=== PATIENT | male | born 1995 | race Caucasian/White ===

== ENCOUNTER 2017-06-04 17:35 | Emergency (ER) | payer OTHER ==
[~2017-06-04] VITALS: Ht 172.7 cm; Wt 72.7 kg
[2017-06-04] MEDS ORDERED: IBUP80TA PO (19:44)
[2017-06-04] MEDS ORDERED: ROBA500T PO (19:44)
[2017-06-04] MEDS ORDERED: IBUPROFEN 800 MG TAB PO ONE (19:45)
[2017-06-04] MEDS ORDERED: METHOCARBAMOL 500 MG TAB PO ONE (19:45)
[2017-06-04 19:58] VITALS: BP 126/64
== END 2017-06-04 19:59 | disposition home or self-care (01) ==
LOC: M ED 17:35
DX: S16.1XXA Strain of muscle, fascia and tendon at neck level, initial encounter (principal); V49.40XA Driver injured in collision with unspecified motor vehicles in traffic accident, initial encounter; Y92.410 Unspecified street and highway as the place of occurrence of the external cause; Y93.89 Activity, other specified; Y99.9 Unspecified external cause status

== ENCOUNTER → 2021-04-18 | Outpatient (CLI) | payer OTHER ==
[~2021-04-18] MED LIST: IBUP80TA PO; ROBA500T PO
--- NOTE | 2021-04-18 21:43 | REP ---
INDICATION: FEVER, UNSPECIFIED COMPARISON: None. TECHNIQUE: PA and lateral. FINDINGS: The mediastinum and cardiac silhouette are normal. The lung jarquin are clear and without acute consolidation, effusion, or pneumothorax. The skeletal structures are intact and normal. IMPRESSION: No acute cardiopulmonary process. <Electronically signed by Jose Salgado > 04/18/21 [id number]
== END ==
LOC: M PLAIMG 11:56
PROVIDERS: ATTEND Physician Assistant
DX: R50.9 Fever, unspecified (principal)

== ENCOUNTER → 2021-04-18 | Outpatient (REF) | payer OTHER | LOC: M SFHCPLAZ 12:40 | PROVIDERS: ATTEND Physician Assistant | DX: R50.9 Fever, unspecified (principal); J02.9 Acute pharyngitis, unspecified | CPT/HCPCS: 87081; U0003 ==

== ENCOUNTER → 2021-10-03 | Outpatient (REF) | payer OTHER | LOC: M SFHCADAM 08:01 | PROVIDERS: ATTEND Physician Assistant | DX: Z00.00 Encounter for general adult medical examination without abnormal findings (principal) ==

== ENCOUNTER → 2022-02-09 | Outpatient (CLI) | payer OTHER ==
[2022-02-09 10:57] LABS: APPEARANCE, URINE CLEAR (CLEAR); BACTERIA, URINE AUTO NEGATIVE (NEGATIVE); BILIRUBIN, URINE AUTO NEGATIVE (NEGATIVE); BLOOD, URINE BLOOD NEGATIVE (NEGATIVE); COLOR, URINE YELLOW (YELLOW); GLUCOSE, URINE (UA) AUTO NEGATIVE (NEGATIVE); KETONE, URINE AUTO NEGATIVE (NEGATIVE); LEUKOCYTE ESTERASE, URINE AUTO NEGATIVE (NEGATIVE); MUCUS, URINE SMALL (NEGATIVE); NITRITE, URINE AUTO NEGATIVE (NEGATIVE); PROTEIN, URINE AUTO NEGATIVE (NEGATIVE); RBC, URINE AUTO 0 /HPF (0-3); SPECIFIC GRAVITY URINE AUTO 1.019 (1.002-1.035); SQUAMOUS EPITHELIAL CELL UR AU 0 /HPF (0-6); UROBILINOGEN, URINE AUTO 0.2 mg/dL (0.0-2.0); WBC, URINE AUTO 0 /HPF (0-3)
== END ==
LOC: M LAB 10:27
PROVIDERS: ATTEND Family Medicine
DX: R30.9 Painful micturition, unspecified (principal)

== ENCOUNTER → 2022-04-08 | Outpatient (CLI) | payer OTHER ==
[~2022-04-08] MED LIST changes: +EXCETAB22 PO
== END ==
LOC: M LABSMTC 09:33
PROVIDERS: ATTEND Anesthesiology
DX: Z01.812 Encounter for preprocedural laboratory examination (principal); Z20.822 Contact with and (suspected) exposure to COVID-19

== ENCOUNTER 2022-04-10 09:39 | Day surgery (SDC) | payer OTHER ==
[~2022-04-10] VITALS: Ht 172.7 cm; Wt 81.6 kg
[~2022-04-10 09:39] MED LIST changes: +ceFAZolin SOD 2 GM in IV 1 EA IV ONE
[2022-04-10] MEDS ORDERED: LR 1,000 ML IV SCH ×2 (10:00→12:55)
[2022-04-10] MEDS ORDERED: BUPIVACAINE LIPOSOME/PF 1.3% 20ML VIAL (13.3MG/ML)(EXPAREL) As Ordered ONE (11:31)
[2022-04-10] MEDS ORDERED: BUPIVACAINE HCL 0.25% 10ML VIAL As Ordered ONE (11:31)
[2022-04-10] MEDS ORDERED: MIDAZOLAM INJ 2MG/2ML VIAL (J2250 PER 1MG) As Ordered ONE (12:07)
[2022-04-10] MEDS ORDERED: fentaNYL 100 MCG/2 ML INJECTION As Ordered ONE (12:07)
[2022-04-10] MEDS ORDERED: propofoL 200 MG/20 ML VIAL As Ordered ONE (12:08)
[2022-04-10] MEDS ORDERED: ROCURONIUM BROMIDE 50 MG/5 ML VIAL As Ordered ONE (12:09)
[2022-04-10] MEDS ORDERED: LIDOCAINE 2% 100MG/5ML SDV (FOR ANES.) As Ordered ONE (12:09)
[2022-04-10] MEDS ORDERED: dexameTHASONE 4 MG/ML 1ML VIAL (J1100 PER 1MG) As Ordered ONE (12:10)
[2022-04-10] MEDS ORDERED: ONDANSETRON 4MG 2ML VIAL As Ordered ONE (12:10)
[2022-04-10] MEDS ORDERED: HYDROmorphone HCL 2MG/ML 1ML VIAL As Ordered ONE (12:14)
[2022-04-10] MEDS ORDERED: SUGAMMADEX SODIUM 500 MG/5 ML VIAL (BRIDION) As Ordered ONE (12:16)
[2022-04-10] MEDS ORDERED: ONDANSETRON 4MG 2ML VIAL IV PRN (12:55)
[2022-04-10] MEDS ORDERED: fentaNYL 100 MCG/2 ML INJECTION IV PRN (12:55)
[2022-04-10] MEDS ORDERED: oxyCODONE 5MG TAB PO PRN (12:55)
[2022-04-10] MEDS ORDERED: MORPHINE 2 MG/ML 1ML VIAL IV PRN (12:55)
[2022-04-10] MEDS ORDERED: NS 1,000 ML IV SCH (13:15)
[2022-04-10] MEDS ORDERED: traMADol 50 MG TAB PO PRN (13:15)
[2022-04-10] MEDS ORDERED: KETOROLAC 30 MG/ML 1ML VIAL IV SCH (14:00)
[2022-04-10 14:15] VITALS: BP 110/55
== END 2022-04-10 15:00 | disposition home or self-care (01) ==
LOC: M SDC 09:39
PROVIDERS: ATTEND Surgery
DX: D17.1 Benign lipomatous neoplasm of skin and subcutaneous tissue of trunk (principal); G43.909 Migraine, unspecified, not intractable, without status migrainosus; K21.9 Gastro-esophageal reflux disease without esophagitis
CPT/HCPCS: 11402; 88304; C9290; J0690; J1100; J1170; J2250; J2405; J3010

== ENCOUNTER → 2023-02-25 | Outpatient (REF) | payer OTHER ==
[~2023-02-25] MED LIST changes: -ceFAZolin SOD 2 GM in IV 1 EA IV ONE
[2023-02-25 13:37] LABS: BASO # 0.1 10^3/uL (0.0-0.2); BASO % 1.2 % (0.0-1.0); EOS # 0.2 10^3/uL (0.0-0.5); EOS % 1.9 % (0.0-3.0); HEMATOCRIT 52.5 % (42.0-52.0); HEMOGLOBIN 16.8 g/dl (13.5-17.5); LYMPH # 2.1 10^3/uL (1.5-5.0); LYMPH % 27.5 % (24.0-44.0); MEAN CORPUSCULAR HEMOGLOBIN 28.1 pg (27.0-33.0); MEAN CORPUSCULAR VOLUME 87.9 fl (80.0-96.0); MONO # 0.6 10^3/uL (0.0-0.8); MONO % 7.2 % (2.0-8.0); NEUTROPHILS # 4.8 10^3/uL (1.5-8.5); NEUTROPHILS % 61.8 % (36.0-66.0); PLATELET COUNT, AUTOMATED 296 10^3/uL (150-450); RED BLOOD COUNT 5.97 10^6/uL (4.30-6.10); WHITE BLOOD COUNT 7.8 10^3/uL (4.0-10.0)
[2023-02-25 13:57] LABS: THYROID STIMULATING HORMONE 0.711 uIU/ML (0.55-4.78); TOTAL 25(OH) VITAMIN D 27.4 NG/ML (20.0-100.0)
[2023-02-25 13:58] LABS: ALBUMIN 4.2 G/DL (3.2-5.2); ALKALINE PHOSPHATASE 44 U/L (46-116); ALT/SGPT 23 U/L (7.0-40); AST/SGOT 15 U/L (<34); BILIRUBIN,TOTAL 0.8 MG/DL (0.3-1.2); BLOOD UREA NITROGEN 13 MG/DL (9-23); CALCIUM LEVEL 10.1 MG/DL (8.5-10.1); CARBON DIOXIDE LEVEL 30 MMOL/L (20-31); CHLORIDE LEVEL 103 MMOL/L (98-107); CREATININE FOR GFR 1.09 MG/DL (0.70-1.30); GLOMERULAR FILTRATION RATE > 60.0 (>60); GLUCOSE, FASTING 80 MG/DL (60-100); POTASSIUM SERUM 5.1 MMOL/L (3.5-5.1); SODIUM LEVEL 141 MMOL/L (136-145); TOTAL PROTEIN 6.6 G/DL (5.7-8.2)
[2023-02-25 14:00] LABS: FREE T4 1.07 NG/DL (0.89-1.76)
== END ==
LOC: M SFHCADAM 10:02
PROVIDERS: ATTEND Physician Assistant
DX: F41.1 Generalized anxiety disorder (principal); F32.1 Major depressive disorder, single episode, moderate; K42.9 Umbilical hernia without obstruction or gangrene

== ENCOUNTER → 2023-03-20 | Outpatient (CLI) | payer OTHER ==
[~2023-03-20] MED LIST changes: +GASTROGRAFIN SOLUTION 30ML As Ordered ONE; +ISOVUE-370 76% 100ML VIAL As Ordered ONE
== END ==
LOC: M RAD 13:48
PROVIDERS: ATTEND Surgery
DX: K42.9 Umbilical hernia without obstruction or gangrene (principal); K57.30 Diverticulosis of large intestine without perforation or abscess without bleeding
CPT/HCPCS: 74177; Q9963; Q9967

== ENCOUNTER → 2024-11-20 | Outpatient (REF) | payer OTHER ==
[~2024-11-20] MED LIST changes: -GASTROGRAFIN SOLUTION 30ML As Ordered ONE; -ISOVUE-370 76% 100ML VIAL As Ordered ONE
[2024-11-20 17:08] LABS: THYROID STIMULATING HORMONE 1.437 uIU/ML (0.55-4.78); TOTAL 25(OH) VITAMIN D 20.4 NG/ML (20.0-100.0)
[2024-11-20 17:09] LABS: FREE T4 1.16 NG/DL (0.89-1.76)
[2024-11-20 17:12] LABS: BASO # 0.1 10^3/uL (0.0-0.2); BASO % 1.5 % (0.0-1.0); EOS # 0.3 10^3/uL (0.0-0.5); EOS % 2.9 % (0.0-3.0); HEMATOCRIT 47.9 % (42.0-52.0); HEMOGLOBIN 16.1 g/dl (13.5-17.5); LYMPH # 3.2 10^3/uL (1.5-5.0); MEAN CORPUSCULAR HEMOGLOBIN 28.5 pg (27.0-33.0); MEAN CORPUSCULAR HGB CONC 33.6 g/dl (32.0-36.5); MEAN CORPUSCULAR VOLUME 84.8 fl (80.0-96.0); MONO # 0.6 10^3/uL (0.0-0.8); MONO % 6.7 % (2.0-8.0); NEUTROPHILS # 4.9 10^3/uL (1.5-8.5); NEUTROPHILS % 53.7 % (36.0-66.0); PLATELET COUNT, AUTOMATED 312 10^3/uL (150-450); RED BLOOD COUNT 5.65 10^6/uL (4.30-6.10); WHITE BLOOD COUNT 9.2 10^3/uL (4.0-10.0)
[2024-11-20 17:28] LABS: ALBUMIN 4.3 G/DL (3.2-5.2); ALKALINE PHOSPHATASE 50 U/L (40-129); ALT/SGPT 22 U/L (7.0-40); AST/SGOT 11 U/L (<34); BILIRUBIN,TOTAL 0.3 MG/DL (0.3-1.2); BLOOD UREA NITROGEN 16 MG/DL (9-23); CALCIUM LEVEL 9.2 MG/DL (8.5-10.1); CARBON DIOXIDE LEVEL 26 MMOL/L (20-31); CHLORIDE LEVEL 105 MMOL/L (98-107); CHOLESTEROL LEVEL 165 MG/DL (<200); CHOLESTEROL RISK RATIO 3.14 (<5); CREATININE FOR GFR 0.95 MG/DL (0.70-1.30); GLOMERULAR FILTRATION RATE > 60.0 (>60); GLUCOSE, FASTING 119 MG/DL (60-100); HDL CHOLESTEROL 52.5 MG/DL (>40); LDL CHOLESTEROL 91.9 MG/DL (<100); NON-HDL-C 112.5 MG/DL; POTASSIUM SERUM 4.1 MMOL/L (3.5-5.1); SODIUM LEVEL 142 MMOL/L (136-145); TOTAL PROTEIN 7.1 G/DL (5.7-8.2); TRIGLYCERIDES LEVEL 103 MG/DL (<150)
[2024-11-20 18:02] LABS: HEMOGLOBIN A1c 4.8 % (4.0-6.0)
== END ==
LOC: M SFHCADAM 13:23
PROVIDERS: ATTEND Physician Assistant
DX: Z00.00 Encounter for general adult medical examination without abnormal findings (principal); F32.1 Major depressive disorder, single episode, moderate; F41.1 Generalized anxiety disorder; D22.9 Melanocytic nevi, unspecified